=== PATIENT | female | born 1970 | race Caucasian/White ===

== ENCOUNTER 2016-10-08 13:36 | Emergency (ER) | payer SELFPAY ==
--- NOTE | 2016-10-08 14:14 | ER Document Report ---
ED Medical Screen (RME) - General Stated Complaint: ALCOHOL WITHDRAWAL SYMPTOMS Time seen by provider: 14:10 Mode of Arrival: Ambulatory Information source: Patient Notes: 46 yo female presents to ed for alcohol withdrawal and need for detox, Patient states she has had seizures in the past due to DTs. Last alcoholic drink was last evening. Would like detox TRAVEL OUTSIDE OF THE [place] IN LAST 30 DAYS: No - HPI Onset: Yesterday Associated Symptoms: Chest pain, Chills, Nausea, Vomiting, Other - feels line a metalic in her mouth Exacerbated by: Denies Relieved by: Denies Similar symptoms previously: Yes Recently seen / treated by doctor: No - Related Data Smoking: Cigarettes - 1cig per day Frequency of alcohol use: Heavy - too much, 1.5 fifths a day Drug Abuse: None Allergies/Adverse Reactions: clindamycin [Clindamycin] Allergy (Unknown, Verified 05/22/15 13:15) rash diphenhydramine HCl [From Benadryl] Allergy (Unknown, Verified 05/22/15 13:15) rash Past Medical History - Past Medical History Cardiac Medical History: Reports: Hx Hypertension - borderline - never on any meds for it Pulmonary Medical History: Reports: Hx Pneumonia Denies: Hx Asthma, Hx Tuberculosis Neurological Medical History: Reports: Hx Seizures Endocrine Medical History: Denies: Hx Diabetes Mellitus Type 1, Hx Diabetes Mellitus Type 2 Renal/ Medical History: Denies: Hx Renal Insufficiency GI Medical History: Reports: Hx Gastroesophageal Reflux Disease - vomits intermittently for many years Musculoskeltal Medical History: Denies Hx Arthritis Skin Medical History: Denies Hx MRSA Psychiatric Medical History: Reports: Hx Anxiety, Hx Depression Traumatic Medical History: Reports: Hx Fractures - clavicle, known L5 compression fracture Past Surgical History: Reports: Hx Hysterectomy - Immunizations Immunizations up to date: Yes Hx Diphtheria, Pertussis, Tetanus Vaccination: Yes Physical Exam - Vital signs Vitals: Temp Pulse Resp BP Pulse Ox 98.3 F 126 H 18 152/104 H 97 10/08/16 14:01 10/08/16 14:01 10/08/16 14:01 10/08/16 14:01 10/08/16 14:01 Course - Vital Signs Vital signs: Temp Pulse Resp BP Pulse Ox 98.3 F 126 H 18 152/104 H 97 10/08/16 14:01 10/08/16 14:01 10/08/16 14:01 10/08/16 14:01 10/08/16 14:01
[2016-10-08] MEDS ORDERED: ONDANSETRON 4 MG TAB.RAPDIS PO ONE (14:15)
[2016-10-08 14:56] LABS: ABSOLUTE BASOPHILS # (AUTO) 0.1 10^3/uL (0.0-0.2); ABSOLUTE EOSINOPHILS # (AUTO) 0.1 10^3/uL (0.0-0.6); ABSOLUTE MONOCYTES (AUTO) 0.4 10^3/uL (0.1-1.4); BASOPHILS % (AUTO) 1.4 % (0-2); EOSINOPHILS % (AUTO) 1.8 % (0-6); HEMATOCRIT 38.6 % (36.0-47.0); HEMOGLOBIN 13.2 g/dL (12.0-15.5); LYMPHOCYTES % (AUTO) 29.9 % (13-45); MEAN CORPUSCULAR HEMOGLOBIN 34.3 pg (27.0-33.4); MEAN CORPUSCULAR HGB CONC 34.1 g/dL (32.0-36.0); MEAN CORPUSCULAR VOLUME 101 fl (80-97); MONOCYTES % (AUTO) 6.7 % (3-13); RED BLOOD COUNT 3.84 10^6/uL (3.72-5.28); RED CELL DISTRIBUTION WIDTH 23.1 % (11.5-14.0); SEGMENTED NEUTROPHILS % (AUTO) 60.2 % (42-78); WHITE BLOOD COUNT 6.6 10^3/uL (4.0-10.5)
[2016-10-08] MEDS ORDERED: LORAZEPAM 1 MG TABLET PO PRN (15:07)
[2016-10-08] MEDS ORDERED: FOLIC ACID 1 MG TABLET PO ONE (15:08)
[2016-10-08] MEDS ORDERED: THIAMINE HCL 100 MG TABLET PO ONE (15:08)
--- NOTE | 2016-10-08 15:12 | ER Document Report ---
ED General - General Chief Complaint: Alcohol Withdrawl Stated Complaint: ALCOHOL WITHDRAWAL SYMPTOMS Time seen by provider: 15:11 Mode of Arrival: Ambulatory Information source: Patient Notes: This is a 46-year-old female with a history of depression, back pain, alcohol abuse (seizures in the setting of alcohol withdrawal) who presents to the emergency room with recent binge drinking after her friend killed herself. Patient is tremulous and wants detox. She has been depressed but denies suicidal ideation at this time. Patient states she last drank 5 hours ago. TRAVEL OUTSIDE OF THE [place] IN LAST 30 DAYS: No - HPI Onset: Last week Onset/Duration: Gradual Quality of pain: No pain Severity: None Pain Level: Denies Associated symptoms: denies: Chills, Nonproductive cough, Productive cough, Fever, Shortness of breath Exacerbated by: Denies Relieved by: Denies Similar symptoms previously: Yes Recently seen / treated by doctor: No - Related Data Allergies/Adverse Reactions: clindamycin [Clindamycin] Allergy (Unknown, Verified 10/08/16 14:43) rash diphenhydramine HCl [From Benadryl] Allergy (Unknown, Verified 10/08/16 14:43) rash Past Medical History - General Information source: Patient - Social History Smoking Status: Current Every Day Smoker Cigarette use (# per day): Yes - 1 pack per day Chew tobacco use (# tins/day): No Smoking Education Provided: No Frequency of alcohol use: Heavy - too much, 1.5 fifths a day Drug Abuse: None Lives with: Family Family History: Reviewed & Not Pertinent Patient has suicidal ideation: No Patient has homicidal ideation: No - Past Medical History Cardiac Medical History: Reports: Hx Hypertension - borderline - never on any meds for it Pulmonary Medical History: Reports: Hx Pneumonia Denies: Hx Asthma, Hx Tuberculosis Neurological Medical History: Reports: Hx Seizures Endocrine Medical History: Denies: Hx Diabetes Mellitus Type 1, Hx Diabetes Mellitus Type 2 Renal/ Medical History: Denies: Hx Renal Insufficiency GI Medical History: Reports: Hx Gastroesophageal Reflux Disease - vomits intermittently for many years Musculoskeltal Medical History: Denies Hx Arthritis Skin Medical History: Denies Hx MRSA Psychiatric Medical History: Reports: Hx Anxiety, Hx Depression Traumatic Medical History: Reports: Hx Fractures - clavicle, known L5 compression fracture Past Surgical History: Reports: Hx Hysterectomy - Immunizations Immunizations up to date: Yes Hx Diphtheria, Pertussis, Tetanus Vaccination: Yes Review of Systems - Review of Systems Constitutional: denies: Chills, Fever EENT: No symptoms reported Cardiovascular: No symptoms reported Respiratory: No symptoms reported Gastrointestinal: No symptoms reported Genitourinary: No symptoms reported Female Genitourinary: No symptoms reported Musculoskeletal: No symptoms reported Skin: No symptoms reported Hematologic/Lymphatic: No symptoms reported Neurological/Psychological: See HPI Physical Exam - Vital signs Vitals: Temp Pulse Resp BP Pulse Ox 98.3 F 126 H 18 152/104 H 97 10/08/16 14:01 10/08/16 14:01 10/08/16 14:01 10/08/16 14:01 10/08/16 14:01 Notes: Physical exam: GENERAL: 46-year-old female, alert and oriented 3, appears mildly tremulous. HEAD: Atraumatic, normocephalic. EYES: Pupils equal round and reactive to light, extraocular movements intact, sclera anicteric, conjunctiva are normal. ENT: TMs normal, nares patent, oropharynx clear without exudates. Moist mucous membranes. NECK: Normal range of motion, supple without lymphadenopathy or JVD. LUNGS: Breath sounds clear to auscultation bilaterally and equal. No wheezes rales or rhonchi. HEART: Tachycardia without murmurs, rubs or gallops. ABDOMEN: Soft, nontender, normoactive bowel sounds. No guarding, no rebound. No masses appreciated. EXTREMITIES: Normal range of motion, no pitting or edema. No clubbing or cyanosis. NEUROLOGICAL: Cranial nerves II through XII grossly intact. Normal speech, normal gait. PSYCH: Depressed but denies suicidal ideations SKIN: Warm, Dry, normal turgor, no rashes or lesions noted. Course - Re-evaluation Re-evalutation: 10/08/16 22:40 Patient was evaluated by psychiatry. They were referred her for outpatient alcohol detox. The patient from a clinical standpoint, looks quite good. I have been giving her some oral Ativan and will do discharge her with a small course of Ativan until she gets into an outpatient program. She does know where [facility] he has and has been there before and have advised her to go there. She is looking into some care home living facilities and [place] as well. - Vital Signs Vital signs: Temp Pulse Resp BP Pulse Ox 98.2 F 110 H 18 155/98 H 96 10/08/16 18:10 10/08/16 18:10 10/08/16 18:10 10/08/16 18:10 10/08/16 18:10 - Laboratory Result Diagrams: 10/08/16 14:20 10/08/16 14:20 Laboratory results interpreted by me: 10/08/16 10/08/16 10/08/16 14:20 14:20 14:20 MCV 101 H MCH 34.3 H RDW 23.1 H Potassium 3.4 L Creatinine 0.38 L Total Bilirubin 1.8 H AST 86 H Urine Glucose (UA) 50 H Urine Ketones TRACE H Urine Nitrite POSITIVE H Ur Leukocyte Esterase TRACE H Discharge - Discharge Clinical Impression: alcohol withdrawal, alcohol dependence Condition: Stable Disposition: HOME, SELF-CARE Additional Instructions: Recommendations: I prescribed some Ativan short-term to help in the acute stages of coming off alcohol. [facility] is open tomorrow and I suggest you follow-up therefore an alcohol detox program. 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 Return to the emergency room for any seizures, concerns he getting worse. Prescriptions: Lorazepam [Ativan 1 mg Tablet] 1 tab PO TID #20 tablet Forms: Return to Work
[2016-10-08 15:18] LABS: APPEARANCE,URINE SLIGHTLY-CLOUDY; BILIRUBIN,URINE NEGATIVE (NEGATIVE); GLUCOSE, URINE 50 mg/dL (NEGATIVE); KETONES,URINE TRACE mg/dL (NEGATIVE); LEUKOCYTE ESTERASE,URINE TRACE (NEGATIVE); NITRITE,URINE POSITIVE (NEGATIVE); PROTEIN,URINE NEGATIVE (NEGATIVE); UROBILINOGEN,URINE NEGATIVE mg/dL (<2.0)
[2016-10-08 15:20] LABS: ALANINE AMINOTRANSFERASE 31 U/L (9-52); ALBUMIN 4.2 g/dL (3.5-5.0); ALCOHOL 218 mg/dL (NONE DETECTED); ALKALINE PHOSPHATASE 117 U/L (38-126); ANION GAP 17 (5-19); ASPARTATE AMINO TRANSFERASE 86 U/L (14-36); BILIRUBIN,TOTAL 1.8 mg/dL (0.2-1.3); BLOOD UREA NITROGEN 12 mg/dL (7-20); CALCIUM 8.9 mg/dL (8.4-10.2); CARBON DIOXIDE 24 mmol/L (22-30); CHLORIDE 103 mmol/L (98-107); CREATININE RESULT 0.38 mg/dL (0.52-1.25); GLUCOSE 95 mg/dL (75-110); POTASSIUM 3.4 mmol/L (3.6-5.0); SODIUM 144.3 mmol/L (137-145); TOTAL PROTEIN 7.2 g/dL (6.3-8.2)
[2016-10-08 15:36] LABS: URINE BARBITURATES SCREEN NEGATIVE; URINE METHADONE SCREEN NEGATIVE; URINE PHENCYCLIDINE SCREEN NEGATIVE
[2016-10-08 19:16] VITALS: BP 155/98
== END 2016-10-08 18:10 | disposition home or self-care (01) ==
LOC: ER 13:36
DX: F10.239 Alcohol dependence with withdrawal, unspecified (principal); F17.210 Nicotine dependence, cigarettes, uncomplicated; I10 Essential (primary) hypertension; Z90.710 Acquired absence of both cervix and uterus; Z88.3 Allergy status to other anti-infective agents
CPT/HCPCS: 99284; 36415; 80307 ×2; 83735; 85025; 80053; 81001; S0119

== ENCOUNTER 2016-10-13 10:56 | Emergency (ER) | payer SELFPAY ==
--- NOTE | 2016-10-13 11:14 | ER Document Report ---
ED Seizure - General Mode of Arrival: Ambulatory Information source: Patient - HPI Patient complains to provider of: History of seizures - all with Quality of pain: No pain Continued on arrival to ED: No Preceding symptoms/context: Sleep deprivation, Other - stopped drinking EtOH x5 days ago Associated Symptoms: Other - minor laceration to tip of tongue <LUIS LEWIS - Last Filed: 10/13/16 11:40> <ANGY SMITH - Last Filed: 10/13/16 15:09> - General Chief Complaint: Seizure Stated Complaint: POSSIBLE SEIZURE Notes: Patient is a 46-year-old female that presents to the emergency department today with complaints of a seizure that occurred today while at work. Patient states she has been drinking alcohol heavily however she stopped "cold turkey" 7 days ago. Patient was seen here on 10/08/16 because this was her first day of not drinking alcohol. She was prescribed a weeks worth of Ativan to prevent seizures however she took the weeks worth in 4 days; taking her last ativan yesterday. Patient states she was unable to sleep last night. 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 Patient states she has never been worked up for seizure disorder however she has only had seizures when she stops drinking EtOH. (LUIS LEWIS) - Related Data Allergies/Adverse Reactions: clindamycin [Clindamycin] Allergy (Unknown, Verified 10/08/16 14:43) rash diphenhydramine HCl [From Benadryl] Allergy (Unknown, Verified 10/08/16 14:43) rash Past Medical History - General Information source: Patient, [facility] Records - Social History Smoking Status: Current Every Day Smoker Frequency of alcohol use: Heavy Drug Abuse: Cocaine, Marijuana, Methamphetamine, Prescription drugs, Other - "have used all drugs except heroin in the past" Lives with: Family Family History: Reviewed & Not Pertinent - Past Medical History Cardiac Medical History: Reports: Hx Hypertension - borderline - never on any meds for it Pulmonary Medical History: Reports: Hx Pneumonia Neurological Medical History: Reports: Hx Seizures GI Medical History: Reports: Hx Gastroesophageal Reflux Disease - vomits intermittently for many years Psychiatric Medical History: Reports: Hx Anxiety, Hx Depression Traumatic Medical History: Reports: Hx Fractures - clavicle, known L5 compression fracture Past Surgical History: Reports: Hx Hysterectomy - Immunizations Immunizations up to date: Yes Hx Diphtheria, Pertussis, Tetanus Vaccination: Yes <EZEQUIEL LEWISON - Last Filed: 10/13/16 11:40> Review of Systems - Review of Systems Constitutional: No symptoms reported EENT: No symptoms reported Cardiovascular: No symptoms reported Respiratory: No symptoms reported Gastrointestinal: No symptoms reported Genitourinary: No symptoms reported Female Genitourinary: No symptoms reported Musculoskeletal: No symptoms reported Skin: No symptoms reported Hematologic/Lymphatic: No symptoms reported Neurological/Psychological: See HPI, Seizure - possible alcohol withdrawal -: Yes All other systems reviewed and negative <LUIS LEWIS - Last Filed: 10/13/16 11:40> Physical Exam - General General appearance: Other - appears older than stated age In distress: None - HEENT Head: Normocephalic, Atraumatic Eyes: Normal Mouth/Lips: Other - laceration to tip of tongue - Respiratory Respiratory status: No respiratory distress - Cardiovascular Rhythm: Regular - Abdominal Inspection: Normal Distension: No distension - Extremities General upper extremity: Normal inspection, Nontender. No: Edema General lower extremity: Normal inspection, Nontender. No: Edema - Neurological Neuro grossly intact: Yes Cognition: Normal Orientation: AAOx4 Speech: Normal - Psychological Associated symptoms: Normal affect, Normal mood - Skin Skin Temperature: Warm Skin Moisture: Dry Skin Color: Other - normal color, dried blood on left finger tips <LUIS LEWIS - Last Filed: 10/13/16 11:40> Course <LUIS LEWIS - Last Filed: 10/13/16 11:40> - Laboratory Result Diagrams: 10/13/16 11:05 10/13/16 11:05 <ANGY SMITH - Last Filed: 10/13/16 15:09> - Re-evaluation Re-evalutation: 10/13/16 12:39 The patient was seen here on 10/08/2016. She was discharged late in the day with a prescription for 20 Ativan to take 3 times a day. This should've lasted 7 days, she had consumed them all by the end of the fourth day. The last Ativan she got worse last night. This would explain why she had done so well without drinking alcohol since her last visit, and explain why she had the seizure this morning. When asked about the possibility of an underlying seizure disorder, the patient states she only has her seizures when she has been drinking heavily and then abruptly stops. 10/13/16 15:03 At this time patient is resting comfortably, and feels well. She is not exhibiting any withdrawal symptoms at this time. Have discussed with her the possibility that she has a real seizure disorder which gets uncovered with alcohol consumption, but it is impossible to know at this point. I prefer not to discharge her on benzodiazepines as she is known to abuse these medications. We will try discharging her on clonidine 0.1 mg twice a day for the next few days. She is encouraged to drink plenty of fluids, not drive and not operate machinery. (ANGY SMITH) - Vital Signs Vital signs: Temp Pulse Resp BP Pulse Ox 98.6 F 84 22 H 117/70 96 10/13/16 11:12 10/13/16 11:12 10/13/16 14:01 10/13/16 14:01 10/13/16 14:01 (LUIS LEWIS) (ANGY SMITH) - Laboratory Laboratory results interpreted by me: 10/13/16 10/13/16 10/13/16 11:05 11:05 11:30 RBC 3.34 L Hgb 11.6 L Hct 34.8 L MCV 104 H MCH 34.7 H RDW 22.9 H Seg Neutrophils % 82.3 H Lymphocytes % 9.5 L Creatinine 0.42 L AST 69 H Creatine Kinase 199 H Urine Protein 30 H Urine Nitrite POSITIVE H (ANGY SMITH) Discharge <LUIS LEWIS - Last Filed: 10/13/16 11:40> <ANGY SMITH - Last Filed: 10/13/16 15:09> - Discharge Clinical Impression: Alcohol withdrawal seizure Qualifiers: Complication of substance-induced condition: with unspecified complication Qualified Code(s): F10.239 - Alcohol dependence with withdrawal, unspecified Condition: Stable Disposition: HOME, SELF-CARE Additional Instructions: Alcohol Withdrawal: Your symptoms may be caused by alcohol withdrawal. After a period of frequent drinking, the brain and body are changed by the alcohol. When you quit or reduce your drinking, the nervous system becomes unstable. Withdrawal symptoms can start a few hours after your last drink, but sometimes don't begin until a couple of days later. Symptoms can include shakiness, sweating, insomnia , nausea, vomiting, fearfulness, hallucinations, and seizures. In addition to the acute effects of alcohol withdrawal, we often have to deal with the medical effects of alcoholism. These problems often include dehydration, stomach irritation, intestinal bleeding, low blood sugar, liver disease, and pancreas inflammation. Treatment for alcohol withdrawal includes mild sedatives, vitamins, and fluids. You need to be with someone who can help if symptoms become severe. Many patients can withdraw at home. Admission to the hospital or a detox facility may be necessary if withdrawal symptoms are severe and uncontrollable. Abstaining from alcohol is the only effective long-term treatment. If you start drinking again, you will not be able to control yourself after the first drink. Treatment programs are available. In addition, many alcoholics benefit from Alcoholics Anonymous or other support groups available through your counselor or jehovah's witness acid blower. [facility] and [employer] are support groups for friends and family members of an alcoholic. Go to the emergency room if you develop persistent vomiting, severe abdominal pain, fever, shortness of breath, hallucinations, uncontrollable tremors, or seizures. TAKE THE MEDICATION PRESCRIBED FOR THE NEXT 3 DAYS--START TONIGHT. FOLLOW UP WITH [facility] FOR HELP WITH SOBRIETY. DO NOT DRIVE OR OPERATE EQUIPMENT FOR THE NEXT FEW DAYS. TAKE SEIZURE PRECAUTIONS. RETURN TO THE EMERGENCY ROOM IF ANY NEW OR WORSENING SYMPTOMS. Prescriptions: Clonidine HCl 0.1 mg PO Q12 #6 tablet [facility]: [facility] - Follow up in 3-5 days Jenniffer Attestation: 10/13/16 15:09 I personally performed the services described in the documentation, reviewed and edited the documentation which was dictated to the scribe in my presence, and it accurately records my words and actions. (ANGY SMITH) Delvinibe Documentation - Delvinibmyles acting as scribe for :Christina Smith Written by Jenniffer:: Jenniffer Lara, 10/13/2016 1159 <LUIS LEWIS - Last Filed: 10/13/16 11:40>
[2016-10-13] MEDS ORDERED: NORMAL SALINE 1000 ML 1,000 ML IV ONE (11:15)
[2016-10-13] MEDS ORDERED: CLONIDINE HCL 0.1 MG TABLET PO ONE (11:16)
[2016-10-13 12:06] LABS: APPEARANCE,URINE SLIGHTLY-CLOUDY; BILIRUBIN,URINE NEGATIVE (NEGATIVE); GLUCOSE, URINE NEGATIVE (NEGATIVE); KETONES,URINE NEGATIVE (NEGATIVE); LEUKOCYTE ESTERASE,URINE NEGATIVE (NEGATIVE); NITRITE,URINE POSITIVE (NEGATIVE); PROTEIN,URINE 30 mg/dL (NEGATIVE); URINE SPECIFIC GRAVITY 1.016; UROBILINOGEN,URINE NEGATIVE mg/dL (<2.0)
[2016-10-13 12:30] LABS: ABSOLUTE EOSINOPHILS # (AUTO) 0.1 10^3/uL (0.0-0.6); ABSOLUTE LYMPHOCYTES (AUTO) 0.6 10^3/uL (0.5-4.7); ABSOLUTE MONOCYTES (AUTO) 0.4 10^3/uL (0.1-1.4); ABSOLUTE NEUT (AUTO) 4.9 10^3/uL (1.7-8.2); BASOPHILS % (AUTO) 0.4 % (0-2); HEMATOCRIT 34.8 % (36.0-47.0); HEMOGLOBIN 11.6 g/dL (12.0-15.5); LYMPHOCYTES % (AUTO) 9.5 % (13-45); MEAN CORPUSCULAR HEMOGLOBIN 34.7 pg (27.0-33.4); MEAN CORPUSCULAR HGB CONC 33.3 g/dL (32.0-36.0); MEAN CORPUSCULAR VOLUME 104 fl (80-97); MONOCYTES % (AUTO) 6.8 % (3-13); RED BLOOD COUNT 3.34 10^6/uL (3.72-5.28); RED CELL DISTRIBUTION WIDTH 22.9 % (11.5-14.0); SEGMENTED NEUTROPHILS % (AUTO) 82.3 % (42-78)
[2016-10-13 12:33] LABS: ALANINE AMINOTRANSFERASE 26 U/L (9-52); ALBUMIN 4.6 g/dL (3.5-5.0); ALKALINE PHOSPHATASE 107 U/L (38-126); ANION GAP 10 (5-19); ASPARTATE AMINO TRANSFERASE 69 U/L (14-36); BILIRUBIN,TOTAL 0.6 mg/dL (0.2-1.3); BLOOD UREA NITROGEN 9 mg/dL (7-20); CALCIUM 9.9 mg/dL (8.4-10.2); CARBON DIOXIDE 30 mmol/L (22-30); CHLORIDE 101 mmol/L (98-107); CREATINE KINASE 199 U/L (30-135); CREATININE RESULT 0.42 mg/dL (0.52-1.25); GLUCOSE 110 mg/dL (75-110); POTASSIUM 3.9 mmol/L (3.6-5.0); SODIUM 140.7 mmol/L (137-145); TOTAL PROTEIN 7.5 g/dL (6.3-8.2)
[2016-10-13 12:34] LABS: ALCOHOL < 10 mg/dL (NONE DETECTED)
[2016-10-13 15:18] VITALS: BP 134/83
[2016-10-13 17:46] LABS: URINE BARBITURATES SCREEN NEGATIVE; URINE METHADONE SCREEN NEGATIVE; URINE PHENCYCLIDINE SCREEN NEGATIVE
== END 2016-10-13 15:20 | disposition home or self-care (01) ==
LOC: ER 10:56
DX: S01.512A Laceration without foreign body of oral cavity, initial encounter (principal); X58.XXXA Exposure to other specified factors, initial encounter; F10.239 Alcohol dependence with withdrawal, unspecified; G40.89 Other seizures; F17.200 Nicotine dependence, unspecified, uncomplicated; Z91.14 Patient's other noncompliance with medication regimen; Z88.1 Allergy status to other antibiotic agents; Z88.8 Allergy status to other drugs, medicaments and biological substances
CPT/HCPCS: 99284; 96360; 36415; 80307 ×2; 82550; 83735; 85025; 80053; 81001; J7030

== ENCOUNTER 2017-11-13 11:59 | Emergency (ER) | payer SELFPAY ==
[2017-11-13] MEDS ORDERED: THIAMINE HCL 100 MG TABLET PO ONE (12:30)
--- NOTE | 2017-11-13 12:31 | ER Document Report ---
ED Medical Screen (RME) - General Chief Complaint: Anxiety Stated Complaint: SHAKY, CHILLS Time Seen by Provider: 11/13/17 12:29 Mode of Arrival: Ambulatory Information source: Patient TRAVEL OUTSIDE OF THE [place] IN LAST 30 DAYS: No - HPI Patient complains to provider of: anxiety Onset: Other - pt has had alcohol withdrawal seizures in the past and recently started drinking ETOH again. States is very anxious - Related Data Allergies/Adverse Reactions: clindamycin [Clindamycin] Allergy (Unknown, Verified 11/13/17 12:03) rash diphenhydramine HCl [From Benadryl] Allergy (Unknown, Verified 11/13/17 12:03) rash Past Medical History - Social History Chew tobacco use (# tins/day): No Frequency of alcohol use: Heavy Drug Abuse: None - Past Medical History Cardiac Medical History: Reports: Hx Hypertension - borderline - never on any meds for it Pulmonary Medical History: Reports: Hx Pneumonia Denies: Hx Asthma, Hx Tuberculosis Neurological Medical History: Reports: Hx Seizures Endocrine Medical History: Denies: Hx Diabetes Mellitus Type 1, Hx Diabetes Mellitus Type 2 Renal/ Medical History: Denies: Hx Peritoneal Dialysis, Hx Renal Insufficiency GI Medical History: Reports: Hx Gastroesophageal Reflux Disease - vomits intermittently for many years Musculoskeltal Medical History: Denies Hx Arthritis Skin Medical History: Denies Hx MRSA Psychiatric Medical History: Reports: Hx Anxiety, Hx Depression Traumatic Medical History: Reports: Hx Fractures - clavicle, known L5 compression fracture Past Surgical History: Reports: Hx Hysterectomy - Immunizations Immunizations up to date: Yes Hx Diphtheria, Pertussis, Tetanus Vaccination: Yes Physical Exam - Vital signs Vitals: Temp Pulse Resp BP Pulse Ox 98.6 F 110 H 16 174/101 H 98 11/13/17 12:08 11/13/17 12:08 11/13/17 12:08 11/13/17 12:08 11/13/17 12:08 Course - Vital Signs Vital signs: Temp Pulse Resp BP Pulse Ox 98.6 F 110 H 16 174/101 H 98 11/13/17 12:08 11/13/17 12:08 11/13/17 12:08 11/13/17 12:08 11/13/17 12:08 Doctor's Discharge - Discharge Instructions: Anxiety ([facility])
[2017-11-13 13:20] LABS: ABSOLUTE BASOPHILS # (AUTO) 0.1 10^3/uL (0.0-0.2); ABSOLUTE EOSINOPHILS # (AUTO) 0.1 10^3/uL (0.0-0.6); ABSOLUTE LYMPHOCYTES (AUTO) 2.2 10^3/uL (0.5-4.7); ABSOLUTE MONOCYTES (AUTO) 0.5 10^3/uL (0.1-1.4); ABSOLUTE NEUT (AUTO) 5.5 10^3/uL (1.7-8.2); BASOPHILS % (AUTO) 1.1 % (0-2); EOSINOPHILS % (AUTO) 1.4 % (0-6); HEMATOCRIT 39.7 % (36.0-47.0); HEMOGLOBIN 13.5 g/dL (12.0-15.5); LYMPHOCYTES % (AUTO) 25.9 % (13-45); MEAN CORPUSCULAR HEMOGLOBIN 35.9 pg (27.0-33.4); MEAN CORPUSCULAR HGB CONC 34.1 g/dL (32.0-36.0); MEAN CORPUSCULAR VOLUME 105 fl (80-97); MONOCYTES % (AUTO) 5.9 % (3-13); PLATELET COUNT 268 10^3/uL (150-450); RED BLOOD COUNT 3.77 10^6/uL (3.72-5.28); RED CELL DISTRIBUTION WIDTH 18.6 % (11.5-14.0); SEGMENTED NEUTROPHILS % (AUTO) 65.7 % (42-78); TOTAL CELLS COUNTED % (AUTO) 100 %; WHITE BLOOD COUNT 8.4 10^3/uL (4.0-10.5)
[2017-11-13 13:39] LABS: ALANINE AMINOTRANSFERASE 32 U/L (9-52); ALBUMIN 4.6 g/dL (3.5-5.0); ALKALINE PHOSPHATASE 166 U/L (38-126); ANION GAP 12 (5-19); ASPARTATE AMINO TRANSFERASE 56 U/L (14-36); BILIRUBIN,DIRECT 0.2 mg/dL (0.0-0.4); BILIRUBIN,TOTAL 1.1 mg/dL (0.2-1.3); BLOOD UREA NITROGEN 7 mg/dL (7-20); CALCIUM 9.3 mg/dL (8.4-10.2); CARBON DIOXIDE 25 mmol/L (22-30); CHLORIDE 103 mmol/L (98-107); GLUCOSE 93 mg/dL (75-110); POTASSIUM 4.1 mmol/L (3.6-5.0); SODIUM 140.1 mmol/L (137-145); TOTAL PROTEIN 7.1 g/dL (6.3-8.2)
[2017-11-13 13:40] LABS: ALCOHOL < 10 mg/dL (NONE DETECTED)
[2017-11-13 13:43] LABS: URINE AMPHETAMINES SCREEN NEGATIVE; URINE BARBITURATES SCREEN NEGATIVE; URINE BENZODIAZEPINES SCREEN UNCONFIRMED POSITIVE; URINE COCAINE SCREEN NEGATIVE; URINE MARIJUANA (THC) SCREEN NEGATIVE; URINE METHADONE SCREEN NEGATIVE; URINE PHENCYCLIDINE SCREEN NEGATIVE
--- NOTE | 2017-11-13 15:09 | ER Document Report ---
ED General - General Chief Complaint: Anxiety Stated Complaint: SHAKY, CHILLS Time Seen by Provider: 11/13/17 12:29 Mode of Arrival: Ambulatory Notes: The patient is a 47-year-old female, past medical history alcoholism, prior alcohol withdrawal seizures, polysubstance abuse, presents after she feels shaky and anxious. Her last drink was last night she feels like she is withdrawing. She plans to go to [facility] later today. Patient denies hallucinations, seizure activity, underlying seizure disorder, fevers, dysuria, nausea, vomiting, chest pain or shortness of breath. TRAVEL OUTSIDE OF THE [place] IN LAST 30 DAYS: No - Related Data Allergies/Adverse Reactions: clindamycin [Clindamycin] Allergy (Unknown, Verified 11/13/17 12:03) rash diphenhydramine HCl [From Benadryl] Allergy (Unknown, Verified 11/13/17 12:03) rash Past Medical History - General Information source: Patient - Social History Smoking Status: Current Every Day Smoker Chew tobacco use (# tins/day): No Frequency of alcohol use: Heavy Drug Abuse: None Family History: Reviewed & Not Pertinent Patient has suicidal ideation: No Patient has homicidal ideation: No - Past Medical History Cardiac Medical History: Reports: Hx Hypertension - borderline - never on any meds for it Pulmonary Medical History: Reports: Hx Pneumonia Denies: Hx Asthma, Hx Tuberculosis Neurological Medical History: Reports: Hx Seizures Endocrine Medical History: Denies: Hx Diabetes Mellitus Type 1, Hx Diabetes Mellitus Type 2 Renal/ Medical History: Denies: Hx Peritoneal Dialysis, Hx Renal Insufficiency GI Medical History: Reports: Hx Gastroesophageal Reflux Disease - vomits intermittently for many years Musculoskeltal Medical History: Denies Hx Arthritis Skin Medical History: Denies Hx MRSA Psychiatric Medical History: Reports: Hx Anxiety, Hx Depression Traumatic Medical History: Reports: Hx Fractures - clavicle, known L5 compression fracture Past Surgical History: Reports: Hx Hysterectomy - Immunizations Immunizations up to date: Yes Hx Diphtheria, Pertussis, Tetanus Vaccination: Yes Review of Systems - Review of Systems Notes: REVIEW OF SYSTEMS: CONSTITUTIONAL: -fevers, -chills EENT: -eye pain, -difficulty swallowing, -nasal congestion CARDIOVASCULAR: -chest pain, -syncope. RESPIRATORY: -cough, -SOB GASTROINTESTINAL: -abdominal pain, -nausea, -vomiting, -diarrhea GENITOURINARY: -dysuria, -hematuria MUSCULOSKELETAL: -back pain, -neck pain SKIN: -rash or skin lesions. HEMATOLOGIC: -easy bruising or bleeding. LYMPHATIC: -swollen, enlarged glands. NEUROLOGICAL: -altered mental status or loss of consciousness, -headache, - neurologic symptoms PSYCHIATRIC: +anxiety, -depression. ALL OTHER SYSTEMS REVIEWED AND NEGATIVE. Physical Exam - Vital signs Vitals: Temp Pulse Resp BP Pulse Ox 98.6 F 110 H 16 174/101 H 98 11/13/17 12:08 11/13/17 12:08 11/13/17 12:08 11/13/17 12:08 11/13/17 12:08 - Notes Notes: PHYSICAL EXAMINATION: GENERAL: Well-appearing, well-nourished and in no acute distress. HEAD: Atraumatic, normocephalic. EYES: Pupils equal round and reactive to light, extraocular movements intact, sclera anicteric, conjunctiva are normal. ENT: nares patent, oropharynx clear without exudates. Moist mucous membranes. NECK: Normal range of motion, supple without lymphadenopathy LUNGS: Breath sounds clear to auscultation bilaterally and equal. No wheezes rales or rhonchi. HEART: Tachycardia, regular rhythm ABDOMEN: Soft, nontender, normoactive bowel sounds. No guarding, no rebound. No masses appreciated. EXTREMITIES: Normal range of motion, no pitting or edema. No cyanosis. NEUROLOGICAL: Cranial nerves grossly intact. Normal speech, normal gait. Normal sensory and motor exams. PSYCH: Mildly anxious. SKIN: Warm, Dry, normal turgor, no rashes or lesions noted. Course - Re-evaluation Re-evalutation: Pt's CIWA score is 6. She said that Librium has helped in the past, so will provide her with a Librium taper. She said that she will follow-up with [facility]. She is safe for outpatient management of her mild alcohol withdrawal symptoms. - Vital Signs Vital signs: Temp Pulse Resp BP Pulse Ox 98.6 F 110 H 16 174/101 H 98 11/13/17 12:08 11/13/17 12:08 11/13/17 12:08 11/13/17 12:08 11/13/17 12:08 - Laboratory Result Diagrams: 11/13/17 12:50 11/13/17 12:50 Laboratory results interpreted by me: 11/13/17 11/13/17 12:50 12:50 MCV 105 H MCH 35.9 H RDW 18.6 H Creatinine 0.43 L AST 56 H Alkaline Phosphatase 166 H Discharge - Discharge Clinical Impression: Anxiety, Alcohol withdrawal syndrome without complication Condition: Stable Disposition: HOME, SELF-CARE Instructions: Anxiety ([facility]) Additional Instructions: CHRONIC ALCOHOLISM and ALCOHOL ABUSE: Your evaluation reveals evidence of chronic alcoholism, an addiction to alcohol. The tendency to alcoholism may be inherited. Chronic use of alcohol weakens muscles, causes fatty deposits in the liver , damages the stomach, makes you more prone to infections, and can cause defects in unborn children. In the long run, brain atrophy and cirrhosis of the liver result. You are also at greater risk for certain types of cancer, such as cancer of the mouth, throat, stomach, and liver. Counselling services are available to help you. In-hospital treatment programs often help. Support groups such as Alcoholics Anonymous can be very useful in beating this addiction. Your physician can make a referral for you. As alcoholics often are prone to other addictions, you should discuss your use of any other medications with the doctor. ALCOHOL WITHDRAWAL: Your symptoms are caused by alcohol withdrawal. After a period of frequent drinking, the brain and body are changed by the alcohol. When you quit or reduce your drinking, the nervous system becomes unstable. Withdrawal symptoms can start a few hours after your last drink, but sometimes don't begin until a couple of days later. Symptoms can include shakiness, sweating, insomnia, nausea , vomiting, fearfulness, hallucinations, and seizures. In addition to the acute effects of alcohol withdrawal, we often have to deal with the medical effects of alcoholism. These problems often include dehydration, stomach irritation, intestinal bleeding, low blood sugar, liver disease, and pancreas inflammation. Treatment for alcohol withdrawal includes mild sedatives, vitamins, and fluids. You need to be with someone who can help if symptoms become severe. Many patients can withdraw at home. Admission to the hospital or a detox facility may be necessary if withdrawal symptoms are severe and uncontrollable. Abstaining from alcohol is the only effective long-term treatment. If you start drinking again, you will not be able to control yourself after the first drink. Treatment programs are available. In addition, many alcoholics benefit from Alcoholics Anonymous or other support groups available through your counselor or mormon pmo business analyst. AL-ANON and ALA-TEEN are support groups for friends and family members of an alcoholic. Go to the emergency room if you develop persistent vomiting, severe abdominal pain, fever, shortness of breath, hallucinations, uncontrollable tremors, or seizures. NARCOTIC / OPIOD ABUSE: Narcotics and opiods are pain-relieving drugs that are often abused. They are addicting. Narcotics cause euphoria, but it often takes increasing amounts to "feel good" and avoid withdrawal symptoms. Overdose of narcotics causes small pupils, coma, and decreased breathing. It's a common cause of . Purity of street narcotics is unpredictable. Injection of narcotics is risky for abscesses, endocarditis (heart infection), pneumonia, and AIDS. Withdrawal from narcotics causes goose bumps, watery mouth, sweating, nasal congestion, muscle aches, abdominal cramps, vomiting, and diarrhea. There 's often restlessness and confusion. Treatment programs are available, but you must make the decision to quit. Medication (such as clonidine) can be prescribed to control the symptoms of withdrawal. OVERDOSE / INGESTION: You have taken more medication than you should have. After your evaluation and care, it is felt that your overdose is not likely to be harmful or of any significant consequences to you and you are being discharged. In the future, you should be careful not to take more medications than what is prescribed for you. Although your overdose does not seem to be of any danger to you at this time, if you develop any unusual or unexpected symptoms after your discharge, you should return to the Emergency Department immediately for re-evaluation. INSTRUCTIONS FOR HOME CARE FOLLOWING DRUG OVERDOSAGE: The doctor feels it's safe for you to go home. You will need to be observed. If charcoal and a laxative was given to you, expect some loose black stools soon. Take no medications unless approved by a physician, including alcohol. If drowsy, lie on your stomach or side for sleeping to avoid aspiration if vomiting occurs. Take only liquids by mouth until there is no more nausea. FOR THE OBSERVER: Observe the patient for the next 24 hours and call or go to the hospital if any of the following are noted: prolonged or repeated vomiting, difficulty in arousing, convulsions (seizures or fits), fever, persistent cough, breathing that is too slow or too rapid, or confused or bizarre behavior. If a counselling visit has been arranged, make sure the patient attends. Call the physician or poison control if you have questions. FOLLOW-UP CARE: If you have been referred to a physician for follow-up care, call the physician s office for an appointment as you were instructed or within the next two days. If you experience worsening or a significant change in your symptoms, notify the physician immediately or return to the Emergency Department at any time for re-evaluation. Prescriptions: Chlordiazepoxide HCl [Librium 25 mg Capsule] 1 cap PO QID PRN #10 capsule PRN Reason: Forms: Elevated Blood Pressure, Return to Work Referrals: [facility] [Provider Group] - Follow up as needed
[2017-11-13] MEDS ORDERED: GABAPENTIN 300 MG CAPSULE PO ONE (15:11)
[2017-11-13 15:40] VITALS: BP 177/115
[2017-11-13 21:01] LABS: AMORPHOUS SEDIMENT,URINE TRACE /HPF; APPEARANCE,URINE TURBID; BILIRUBIN,URINE NEGATIVE (NEGATIVE); GLUCOSE, URINE NEGATIVE (NEGATIVE); KETONES,URINE 20 mg/dL (NEGATIVE); LEUKOCYTE ESTERASE,URINE NEGATIVE (NEGATIVE); NITRITE,URINE NEGATIVE (NEGATIVE); PROTEIN,URINE NEGATIVE (NEGATIVE); URINE SPECIFIC GRAVITY 1.025; UROBILINOGEN,URINE NEGATIVE mg/dL (<2.0)
[2017-11-13 21:02] LABS: COLOR,URINE YELLOW
== END 2017-11-13 15:47 | disposition home or self-care (01) ==
LOC: ER 11:59
DX: F41.9 Anxiety disorder, unspecified (principal); F10.239 Alcohol dependence with withdrawal, unspecified; F19.10 Other psychoactive substance abuse, uncomplicated; F17.200 Nicotine dependence, unspecified, uncomplicated
CPT/HCPCS: 36415; 80053; 80307; 81001; 85025; 99283

== ENCOUNTER 2018-03-10 15:10 | Emergency (ER) | payer SELFPAY ==
[2018-03-10] MEDS ORDERED: RINGERS SOLUTION,LACTATED 1,000 ML IV ONE (15:26)
[2018-03-10] MEDS ORDERED: ONDANSETRON HCL INJ/PF 4 MG/2 ML SDV IV ONE (15:26)
--- NOTE | 2018-03-10 15:40 | ER Document Report ---
ED Medical Screen (RME) - General Chief Complaint: Alcohol Withdrawl Stated Complaint: WEAKNESS Time Seen by Provider: 03/10/18 15:25 Notes: 47 year old female presents to the ED complaining of weight loss over the past 6 months since leaving alcohol rehab (she has started drinking again, drinks about 1/5 of hard liquor a day), confusion, memory loss, worrying that she has cirrhosis. Denies any abdominal pain. States that she had 2 days worth of vomiting and diarrhea but denies any blood in it. Denies any easy bruising or bleeding. Denies any jaundice. TRAVEL OUTSIDE OF THE [place] IN LAST 30 DAYS: No - Related Data Allergies/Adverse Reactions: clindamycin [Clindamycin] Allergy (Unknown, Verified 03/10/18 15:11) rash diphenhydramine HCl [From Benadryl] Allergy (Unknown, Verified 03/10/18 15:11) rash Past Medical History - General Information source: Patient - Social History Cigarette use (# per day): Yes Frequency of alcohol use: Heavy Drug Abuse: Marijuana Family history: Other - brother with cirrhosis - Past Medical History Cardiac Medical History: Reports: Hx Hypertension - borderline - never on any meds for it Pulmonary Medical History: Reports: Hx Pneumonia Denies: Hx Asthma, Hx Tuberculosis Neurological Medical History: Reports: Hx Seizures Endocrine Medical History: Denies: Hx Diabetes Mellitus Type 1, Hx Diabetes Mellitus Type 2 Renal/ Medical History: Denies: Hx Peritoneal Dialysis, Hx Renal Insufficiency GI Medical History: Reports: Hx Gastroesophageal Reflux Disease - vomits intermittently for many years Musculoskeltal Medical History: Denies Hx Arthritis Skin Medical History: Denies Hx MRSA Psychiatric Medical History: Reports: Hx Anxiety, Hx Depression Traumatic Medical History: Reports: Hx Fractures - clavicle, known L5 compression fracture Past Surgical History: Reports: Hx Hysterectomy - Immunizations Immunizations up to date: Yes Hx Diphtheria, Pertussis, Tetanus Vaccination: Yes Review of Systems - Review of Systems Constitutional: See HPI, Weight loss EENT: No symptoms reported Cardiovascular: No symptoms reported Respiratory: No symptoms reported Gastrointestinal: See HPI, Diarrhea, Nausea, Vomiting. denies: Abdominal pain Physical Exam - Vital signs Vitals: Temp Pulse Resp BP Pulse Ox 98.8 F 120 H 18 147/100 H 100 03/10/18 15:17 03/10/18 15:17 03/10/18 15:17 03/10/18 15:17 03/10/18 15:17 Interpretation: Hypertensive, Tachycardic - General General appearance: Alert, Anxious - HEENT Head: Normocephalic, Atraumatic Eyes: Normal. No: Scleral icterus Conjunctiva: No: Icteric Pupils: PERRL Mucous membranes: Moist - Respiratory Respiratory status: No respiratory distress Chest status: Nontender Breath sounds: Normal Chest palpation: Normal - Cardiovascular Rhythm: Regular, Tachycardia Heart sounds: Normal auscultation Murmur: No Course - Vital Signs Vital signs: Temp Pulse Resp BP Pulse Ox 98.8 F 120 H 18 147/100 H 100 03/10/18 15:17 03/10/18 15:17 03/10/18 15:17 03/10/18 15:17 03/10/18 15:17
[2018-03-10 16:22] LABS: ABSOLUTE BASOPHILS # (AUTO) 0.1 10^3/uL (0.0-0.2); ABSOLUTE EOSINOPHILS # (AUTO) 0.1 10^3/uL (0.0-0.6); ABSOLUTE LYMPHOCYTES (AUTO) 2.1 10^3/uL (0.5-4.7); ABSOLUTE MONOCYTES (AUTO) 0.8 10^3/uL (0.1-1.4); ABSOLUTE NEUT (AUTO) 6.9 10^3/uL (1.7-8.2); BASOPHILS % (AUTO) 1.2 % (0-2); EOSINOPHILS % (AUTO) 0.9 % (0-6); HEMATOCRIT 39.1 % (36.0-47.0); HEMOGLOBIN 13.3 g/dL (12.0-15.5); LYMPHOCYTES % (AUTO) 20.8 % (13-45); MEAN CORPUSCULAR VOLUME 100 fl (80-97); MONOCYTES % (AUTO) 8.1 % (3-13); PLATELET COUNT 286 10^3/uL (150-450); RED BLOOD COUNT 3.91 10^6/uL (3.72-5.28); RED CELL DISTRIBUTION WIDTH 20.5 % (11.5-14.0); TOTAL CELLS COUNTED % (AUTO) 100 %
[2018-03-10 16:26] LABS: APPEARANCE,URINE CLOUDY; BILIRUBIN,URINE NEGATIVE (NEGATIVE); GLUCOSE, URINE NEGATIVE (NEGATIVE); KETONES,URINE TRACE mg/dL (NEGATIVE); LEUKOCYTE ESTERASE,URINE MODERATE (NEGATIVE); NITRITE,URINE NEGATIVE (NEGATIVE); PROTEIN,URINE 100 mg/dL (NEGATIVE); URINE SPECIFIC GRAVITY 1.016; UROBILINOGEN,URINE NEGATIVE mg/dL (<2.0)
[2018-03-10 16:28] LABS: COLOR,URINE DARK YELLOW
[2018-03-10 16:35] LABS: INTERNATIONAL RATION (INR) 0.95; PARTIAL THROMBOPLASTIN TIME 28.7 SEC (23.5-35.8); PROTHROMBIN TIME 13.1 SEC (11.4-15.4)
[2018-03-10 16:42] LABS: ALANINE AMINOTRANSFERASE 21 U/L (9-52); ALBUMIN 5.3 g/dL (3.5-5.0); ALKALINE PHOSPHATASE 119 U/L (38-126); ANION GAP 19 (5-19); ASPARTATE AMINO TRANSFERASE 38 U/L (14-36); BILIRUBIN,DIRECT 0.6 mg/dL (0.0-0.4); BLOOD UREA NITROGEN 20 mg/dL (7-20); CALCIUM 11.4 mg/dL (8.4-10.2); CARBON DIOXIDE 21 mmol/L (22-30); CHLORIDE 103 mmol/L (98-107); GLUCOSE 106 mg/dL (75-110); LIPASE 242.1 U/L (23-300); POTASSIUM 3.3 mmol/L (3.6-5.0); SODIUM 143.4 mmol/L (137-145); TOTAL PROTEIN 9.1 g/dL (6.3-8.2)
[2018-03-10 16:43] LABS: ALCOHOL < 10 mg/dL (NONE DETECTED)
[2018-03-10 16:58] LABS: FREE T3 5.14 pg/mL (2.77-5.27); FREE T4 (FREE THYROXINE) 1.18 ng/dL (0.78-2.19)
[2018-03-10 17:10] LABS: THYROID STIMULATING HORMONE 4.64 uIU/mL (0.47-4.68)
[2018-03-10] MEDS ORDERED: LORAZEPAM 1 MG TABLET PO ONE (17:19)
--- NOTE | 2018-03-10 17:20 | ER Document Report ---
ED General <LUIS LEWIS - Last Filed: 03/10/18 17:21> - General TRAVEL OUTSIDE OF THE [place] IN LAST 30 DAYS: No <RENNY ANDUJAR - Last Filed: 03/10/18 21:18> - General Chief Complaint: Alcohol Withdrawl Stated Complaint: WEAKNESS Time Seen by Provider: 03/10/18 15:25 Notes: 47 year old female presents to the ED complaining of weight loss over the past 6 months since leaving alcohol rehab (she has started drinking again, drinks about 1/5 of hard liquor a day), confusion, memory loss, worrying that she has cirrhosis. Denies any abdominal pain. States that she had 2 days worth of vomiting and diarrhea but denies any blood in it. Denies any easy bruising or bleeding. Denies any jaundice. (LUIS LEWIS) - Related Data Allergies/Adverse Reactions: clindamycin [Clindamycin] Allergy (Unknown, Verified 03/10/18 15:11) rash diphenhydramine HCl [From Benadryl] Allergy (Unknown, Verified 03/10/18 15:11) rash Past Medical History - General Information source: Patient - Social History Smoking Status: Current Some Day Smoker Cigarette use (# per day): Yes Chew tobacco use (# tins/day): No Frequency of alcohol use: Heavy Drug Abuse: Marijuana Family History: Reviewed & Not Pertinent Patient has suicidal ideation: No Patient has homicidal ideation: No - Past Medical History Cardiac Medical History: Reports: Hx Hypertension - borderline - never on any meds for it Pulmonary Medical History: Reports: Hx Pneumonia Denies: Hx Asthma, Hx Tuberculosis Neurological Medical History: Reports: Hx Seizures Endocrine Medical History: Denies: Hx Diabetes Mellitus Type 1, Hx Diabetes Mellitus Type 2 Renal/ Medical History: Denies: Hx Peritoneal Dialysis, Hx Renal Insufficiency GI Medical History: Reports: Hx Gastroesophageal Reflux Disease - vomits intermittently for many years Musculoskeltal Medical History: Denies Hx Arthritis Skin Medical History: Denies Hx MRSA Psychiatric Medical History: Reports: Hx Anxiety, Hx Depression Traumatic Medical History: Reports: Hx Fractures - clavicle, known L5 compression fracture Past Surgical History: Reports: Hx Hysterectomy - Immunizations Immunizations up to date: Yes Hx Diphtheria, Pertussis, Tetanus Vaccination: Yes <RENNY ANDUJAR - Last Filed: 03/10/18 21:18> Review of Systems - Review of Systems Genitourinary: No symptoms reported Musculoskeletal: No symptoms reported Neurological/Psychological: See HPI -: Yes All other systems reviewed and negative <RENNY ANDUJAR - Last Filed: 03/10/18 21:18> - Review of Systems Notes: - Review of Systems Constitutional: See HPI, Weight loss EENT: No symptoms reported Cardiovascular: No symptoms reported Respiratory: No symptoms reported Gastrointestinal: See HPI, Diarrhea, Nausea, Vomiting. denies: Abdominal pain ( LUIS LEWIS) Physical Exam <LUIS LEWIS - Last Filed: 03/10/18 17:21> - Abdominal Inspection: Normal Distension: No distension Bowel sounds: Normal Tenderness: Nontender Organomegaly: No organomegaly - Extremities General upper extremity: Normal ROM General lower extremity: Normal ROM - Neurological Neuro grossly intact: Yes Cognition: Normal Orientation: AAOx4 [place] Coma Scale Eye Opening: Spontaneous Erick Coma Scale Verbal: Oriented Erick Coma Scale Motor: Obeys Commands Erick Coma Scale Total: 15 Speech: Normal Cranial nerves: Normal Cerebellar coordination: Normal Motor strength normal: LUE, RUE, LLE, RLE Sensory: Normal - Psychological Associated symptoms: Normal affect, Normal mood - Skin Skin Temperature: Warm Skin Moisture: Dry Skin Color: Normal <RENNY ANDUJAR - Last Filed: 03/10/18 21:18> - Vital signs Vitals: Temp Pulse Resp BP Pulse Ox 98.8 F 120 H 18 147/100 H 100 03/10/18 15:17 03/10/18 15:17 03/10/18 15:17 03/10/18 15:17 03/10/18 15:17 - Notes Notes: Interpretation: Hypertensive, Tachycardic - General General appearance: Alert, Anxious - HEENT Head: Normocephalic, Atraumatic Eyes: Normal. No: Scleral icterus Conjunctiva: No: Icteric Pupils: PERRL Mucous membranes: Moist - Respiratory Respiratory status: No respiratory distress Chest status: Nontender Breath sounds: Normal Chest palpation: Normal - Cardiovascular Rhythm: Regular, Tachycardia Heart sounds: Normal auscultation Murmur: No (LUIS LEWIS) Course - Laboratory Result Diagrams: 03/10/18 16:07 03/10/18 16:07 <LUIS LEWIS - Last Filed: 03/10/18 17:21> - Laboratory Result Diagrams: 03/10/18 16:07 03/10/18 16:07 <RENNY ANDUJAR - Last Filed: 03/10/18 21:18> - Re-evaluation Re-evalutation: 03/10/18 17:17 CBC shows macrocytosis otherwise unremarkable, coags unremarkable, CMP shows slightly low potassium at 3.3, slightly low CO2 at 19, LFTs mostly normal, AST slightly elevated at 38 otherwise unremarkable, surprisingly total protein and albumin are normal, lipase normal, TSH T3 and T3-4 are normal, urinalysis shows moderate leukocyte esterase with 11 WBCs only 2 squamous epithelial cells and trace bacteria, alcohol level was less than 10. I did discuss with the patient that there are many causes for fatigue, weight loss and memory problems particularly in somebody with a history of chronic alcoholism. I do not see any evidence of liver failure at this time however she understands she will need further outpatient workup, possibly an ultrasound of her liver or even biopsy considering her extensive drinking history. Patient will also need to follow-up with a primary care physician for further workup for this memory loss. No evidence of acute encephalopathy today. Patient is also not showing any signs of life-threatening alcohol withdrawal at this time despite a negative alcohol level. Patient encouraged to join AA or do other treatments to try and stop drinking. 03/10/18 17:18 Patient denies dysuria, urine was sent for culture. I suspect this is contaminant or asymptomatic bacteriuria but we will see what it grows out. 03/10/18 21:18 Patient wishes to quit drinking. Will be prescribed Librium. Heart rate has normalized. (RENNY ANDUJAR) - Vital Signs Vital signs: Temp Pulse Resp BP Pulse Ox 97.6 F 96 15 152/106 H 100 03/10/18 17:22 03/10/18 17:22 03/10/18 17:22 03/10/18 17:22 03/10/18 17:22 - Laboratory Laboratory results interpreted by me: 03/10/18 03/10/18 03/10/18 15:51 16:07 16:07 MCV 100 H MCH 34.0 H RDW 20.5 H Potassium 3.3 L Carbon Dioxide 21 L Calcium 11.4 H Direct Bilirubin 0.6 H AST 38 H Total Protein 9.1 H Albumin 5.3 H Urine Protein 100 H Urine Ketones TRACE H Ur Leukocyte Esterase MODERATE H Discharge <JOSHUA,LUIS - Last Filed: 03/10/18 17:21> <RENNY ANDUJAR - Last Filed: 03/10/18 21:18> - Discharge Clinical Impression: Alcohol abuse Alcohol withdrawal Qualifiers: Complication of substance-induced condition: uncomplicated Qualified Code(s): F10.230 - Alcohol dependence with withdrawal, uncomplicated Condition: Stable Disposition: HOME, SELF-CARE Additional Instructions: Alcohol Withdrawal Your symptoms are caused by alcohol withdrawal. After a period of frequent drinking, the brain and body are changed by the alcohol. When you quit or reduce your drinking, the nervous system becomes unstable. Withdrawal symptoms can start a few hours after your last drink, but sometimes don't begin until a couple of days later. Symptoms can include shakiness, sweating, insomnia, nausea , vomiting, fearfulness, hallucinations, and seizures. In addition to the acute effects of alcohol withdrawal, we often have to deal with the medical effects of alcoholism. These problems often include dehydration, stomach irritation, intestinal bleeding, low blood sugar, liver disease, and pancreas inflammation. Treatment for alcohol withdrawal includes mild sedatives, vitamins, and fluids. You need to be with someone who can help if symptoms become severe. Many patients can withdraw at home. Admission to the hospital or a detox facility may be necessary if withdrawal symptoms are severe and uncontrollable. Abstaining from alcohol is the only effective long-term treatment. If you start drinking again, you will not be able to control yourself after the first drink. Treatment programs are available. In addition, many alcoholics benefit from Alcoholics Anonymous or other support groups available through your counselor or confucianist bridge instructor. AL-ANON and ALA-TEEN are support groups for friends and family members of an alcoholic. Go to the emergency room if you develop persistent vomiting, severe abdominal pain, fever, shortness of breath, hallucinations, uncontrollable tremors, or seizures. Prescriptions: Chlordiazepoxide HCl [Librium 25 mg Capsule] 1 cap PO ASDIR PRN #25 capsule PRN Reason: Referrals: [facility] [Provider Group] - Follow up as needed [facility] [Provider Group] - Follow up as needed Scribe Attestation: 03/10/18 21:18 I personally performed the services described in the documentation, reviewed and edited the documentation which was dictated to the scribe in my presence, and it accurately records my words and actions. (RENNY ANDUJAR)
[2018-03-10 17:34] VITALS: BP 152/106
== END 2018-03-10 17:34 | disposition home or self-care (01) ==
LOC: ER 15:10
DX: F10.230 Alcohol dependence with withdrawal, uncomplicated (principal); R41.0 Disorientation, unspecified; R41.3 Other amnesia; R11.10 Vomiting, unspecified; R19.7 Diarrhea, unspecified; F17.210 Nicotine dependence, cigarettes, uncomplicated; I10 Essential (primary) hypertension
CPT/HCPCS: 99284; 36415; 87086; 84439; 80307; 83690; 84443; 85025; 85610; 85730; 80053; 81001; 84481; J2405; J7120